=== PATIENT | male | born 1950 | race Caucasian/White ===

== ENCOUNTER → 2018-04-27 | Outpatient (CLI) | payer MEDICARE ==
--- NOTE | 2018-04-27 13:13 | PCVCIMAG ---
EXAM: BILATERAL LOWER EXTREMITY ARTERIAL DUPLEX INDICATION: Peripheral Arterial Disease. Leg pain. FINDINGS: Right Leg: Common femoral and profunda femoral arteries are patent. Superficial femoral artery is patent. Subtotal occlusion/high-grade stenosis mid/distal right popliteal artery. The peroneal artery is occluded. The anterior tibial artery is patent. Question of proximal posterior tibial artery stenosis. Left Leg: Satisfactory arterial waveforms throughout the common/profunda/superficial femoral, popliteal, anterior tibial, peroneal, and posterior tibial arteries. No flow limiting stenosis seen. IMPRESSION: Subtotal occlusion/high-grade stenosis mid/distal right popliteal artery. Occlusion of the right peroneal artery. No flow limiting stenosis seen in the left leg. LOC:[id number]
== END | disposition home or self-care (01) ==
LOC: PCVCIMAG 11:22
PROVIDERS: ATTEND Family Medicine
DX: I73.9 Peripheral vascular disease, unspecified (principal)
CPT/HCPCS: 93925

== ENCOUNTER → 2018-05-14 | Outpatient (CLI) | payer MEDICARE | END | disposition home or self-care (01) | LOC: PCVCCLINIC 12:00 | PROVIDERS: ATTEND Internal Medicine | DX: I25.10 Atherosclerotic heart disease of native coronary artery without angina pectoris (principal); I10 Essential (primary) hypertension; I73.9 Peripheral vascular disease, unspecified; R93.1 Abnormal findings on diagnostic imaging of heart and coronary circulation; F17.200 Nicotine dependence, unspecified, uncomplicated; Z72.89 Other problems related to lifestyle | CPT/HCPCS: 93005; G0463 ==

== ENCOUNTER → 2018-05-22 | Outpatient (CLI) | payer MEDICARE ==
[~2018-05-22] MED LIST: ASPIRIN 325 MG TABLET ONE; CLOPIDOGREL BISULFATE 75 MG TABLET ONE; DIAZEPAM 10 MG TABLET. ONE; EPTIFIBATIDE BOLUS 2,000 MCG/ML 10ML VIAL. IV ONE; HEPARIN for ARTERIAL LINE 1,500 ML ONE; HEPARIN for SUB-Q USE 5,000 UNIT/ML VIAL. SQ ONE; IODIXANOL 270 MG/ML 100 ML VIAL. ONE; IOHEXOL 350 MG/ML 100 ML VIAL. ONE; IOHEXOL 350 MG/ML 50 ML VIAL. ONE; IV NORMAL SALINE 1000ML BAG 1,000 ML ONE; LIDOCAINE 1%/EPI 1:100,000 20 ML VIAL. ONE; MIDAZOLAM HCL/PF 2 MG/2 ML VIAL. ONE; PROTAMINE 50 MG/5 ML VIAL. IV ONE; fentaNYL PF VIAL 100 MCG/2 ML VIAL ONE; hydrALAZINE 20 MG/ML VIAL. ONE
--- NOTE | 2018-05-22 22:54 | PCVCINTER ---
EXAM: 1. AORTOGRAM AND BILATERAL LOWER EXTREMITY RUNOFF ANGIOGRAM 2. BILATERAL RENAL ANGIOGRAPHY 3. RIGHT POPLITEAL ARTERY ATHERECTOMY AND STENT PLACEMENT. 4. SECONDARY THROMBECTOMY RIGHT POPLITEAL ARTERY. 5. DRUG COATED BALLOON ANGIOPLASTY RIGHT POPLITEAL ARTERY. INDICATION: Peripheral arterial disease. Coronary artery disease. Nonhealing ulcer right lower extremity. Hypertension. Renal atherosclerosis. No prior catheter based angiographic study is available. A full diagnostic angiogram study is performed today and the decision to intervene is based on this diagnostic study. PROCEDURE: Procedure and risks of angiography intervention is appropriate including limb loss stroke and were discussed with the patient's family and consent obtained. The patient's left groin was prepped in the normal sterile fashion. IV conscious sedation was used throughout procedure with appropriate monitoring from 10:30 AM through 12:00 PM. Ultrasound was used to interrogate the left groin and showed the left common femoral artery to be patent. A permanent spot film was obtained. Under ultrasound guidance access into the left common femoral artery was obtained and a 5 Sami sheath was placed. Through this a 5 Sami flush catheter was placed into the abdominal aorta at the level of the renal arteries and AP aortogram was performed. Catheter was positioned at the aortic bifurcation and both oblique views of the pelvis were obtained. Catheter was positioned into the left external iliac artery and left leg runoff angiography was performed. Catheter was exchanged for a visceral catheter was placed into the right renal arteries and right renal angiograms obtained. Catheter was placed into the the left renal arteries and left renal angiograms were obtained. Catheter was advanced to the level of the right external iliac artery and right leg runoff angiography was obtained. Patient was given 4000 units of heparin. A 6 Sami crossover sheath was placed via the left groin to the level of the right common femoral artery. Atherectomy of the right popliteal artery was performed with 2.0 mm SpectranetModeWalk laser atherectomy catheter in the standard fashion. Following atherectomy small areas of thrombus were observed and because of this secondary thrombectomy throughout the right popliteal artery was carried out with mechanical suction thrombectomy catheter in the standard fashion. Minimal debris was removed. Following this drug coated balloon angioplasty of the right popliteal artery was carried out with a 5 x 60 SpectranetModeWalk Gita [place] [employer] W[employer] TE[employer]NICIAN catheter. Stent placement across the areas of high-grade stenosis in the right popliteal artery was carried out with a 8 x 40 Smart control stent with subsequent dilatation to 6.0 mm. Catheters and wires removed. Sheath was removed and hemostasis obtained using the FISH device. No immediate complications. FINDINGS: Aortogram: There is one right and one left renal artery. Moderate plaque infrarenal abdominal aorta with moderate tortuosity. Pelvis: The right and left common and external iliac arteries show adequate patency. Both internal iliac arteries are patent. The right and left common femoral and profunda femoral arteries show adequate patency. Right renal artery: Mild plaque proximal vessel causes minimal stenosis. Left renal artery: Minimal plaque proximal vessel does not cause significant stenosis. Right leg: Superficial femoral artery shows good patency throughout. Short segment occlusion mid popliteal artery. Distal popliteal artery refills. The anterior tibial, peroneal, and posterior tibial arteries show adequate patency throughout. Left le% concentric stenosis proximal superficial femoral artery. Remainder of the superficial femoral artery shows good patency. Popliteal artery is patent. 80% stenosis origin anterior tibial artery. Anterior tibial artery otherwise shows satisfactory patency. The peroneal artery and posterior tibial arteries show satisfactory patency throughout. Right popliteal artery: Following procedure as above satisfactory patency throughout the popliteal artery has been restored. IMPRESSION: Short segment occlusion mid [place] right popliteal artery was treated as above with satisfactory patency restored. 80% stenosis proximal left superficial femoral artery. Patient will return next week for correction of this. LOC:OFFICE
--- NOTE | 2018-05-24 13:39 | PCVCINTER ---
APPROVED REPORT Study performed: 05/22/2018 12:10:07 Patient Details Patient Status: Out-Patient Room #: 2 The patient is a 68 year-old Male Event Personnel Mustapha Villaseñor MD, Eddie Barnett RT(R), Jenni Johnson RN, Teto Antonio RT(R)() Procedures Performed Left heart catheterization, selective left and right coronary angiography, supervision of conscious sedation Indication Elevated calcium score greater than 2000 with significant risk factors for coronary artery disease Risk Factors Arterial HypertensionDysplipidemia (Type: 0), Peripheral Vascular Disease, Last Creatanine 0.8Tobacco History (Current/Recent(w/in 1 year)) Procedure Narrative The right coronary system was accessed and visualized with a JR4 catheter. The left coronary system was accessed and visualized with a JL4 catheter. The left ventricle was accessed and visualized with a Angled Pigtail catheter. Closure device was deployed with a 6 Fr FISH. Hemostasis was obtained with manual pressure following sheath removal without any complications. The patient tolerated the procedure well and there were no complications associated with the procedure. There was no hematoma. Coronary Angiography The patient's coronary anatomy is right dominant. Diagnostic Cath Left MainNormal origin moderate to large caliber vessel bifurcates left anterior descending left circumflex. Some distal tapering consistent with a narrowing of under 50%. No flow limitations. There is evidence of calcifications at the distal portion of the left main LADSmall-caliber vessel which courses in the anterior interventricular sulcus having significant epicardial calcifications. In the proximal portion there appears to be at 25% luminal narrowing, flow-limiting. The LAD continues in the anterior interventricular sulcus giving rise to septal perforators and small diagonal branches with only luminal irregularities until the distal terminal portion with a vessel is under half a millimeter in diameter. At this point and is a 95 or greater percent stenosis. The vessel then bifurcates into small hair-like extensions terminating in the inferolateral Diagonal 1Moderate caliber vessel coursing along the anterolateral wall. High-grade disease it tapers rapidly and terminates small-caliber vessels in the midportion of the anterolateral wall of the left ventricle CircumflexMall caliber vessel which gives rise to an early marginal branch versus ramus. This is small to moderate caliber free of high-grade disease [id number] to moderate caliber vessel coursing on the lateral aspect of the ventricle terminating in the apical portion of the lateral aspect of the left ventricle has luminal irregularities noted. No obstructive flow-limiting lesions Right CoronaryNormal origin and caliber which has a proximal narrowing of approximately 30-40%. This vessel is calcified proximally and in its mid course. The artery then continues on any AV groove to the acute marginal gives rise to small caliber RV marginal branch. It. Sees with only luminal irregularities to the crux of the hardware posterior descending artery which is small to moderate in caliber he states. It is free of high-grade disease. The fact kayleen and terminates as a small to branch posterior lateral branch without high-grade lesions R PDASmall to moderate caliber vessel tortuous in its course towards the apex free of significant high-grade lesions noted Left Ventriculography Left Ventriculography was not performed. Hemodynamics The aortic pressure is 127/68 mmHg with a mean of 95 mmHg. The left ventricular pressure is 129/4 mmHg with a mean of 7 mmHg. Conclusion 1. Coronary disease mild to moderate without evidence of significant obstructive lesions 2. Normal hemodynamics 3. Extensive calcification of the aorta proper noted under fluoroscopy from the pelvis to the thoracic region Recommendations Cardiac Risk Reduction Program Medical Therapy
== END | disposition home or self-care (01) ==
LOC: PCVCINTER 09:21
PROVIDERS: ATTEND Internal Medicine
DX: I70.238 Atherosclerosis of native arteries of right leg with ulceration of other part of lower leg (principal); L97.818 Non-pressure chronic ulcer of other part of right lower leg with other specified severity; I70.292 Other atherosclerosis of native arteries of extremities, left leg; I25.10 Atherosclerotic heart disease of native coronary artery without angina pectoris; I70.1 Atherosclerosis of renal artery; I10 Essential (primary) hypertension; I70.0 Atherosclerosis of aorta; Z98.890 Other specified postprocedural states; Z98.1 Arthrodesis status; Z82.49 Family history of ischemic heart disease and other diseases of the circulatory system; F17.210 Nicotine dependence, cigarettes, uncomplicated; Z72.89 Other problems related to lifestyle; Z79.899 Other long term (current) drug therapy; Z79.82 Long term (current) use of aspirin; M81.0 Age-related osteoporosis without current pathological fracture; M15.0 Primary generalized (osteo)arthritis
CPT/HCPCS: 36252; 37186; 37227; 75716; 76937; 93458; 99152; 99153; C1725; C1751; C1757; C1760; C1769; C1876; C1885; C1887; C1894; C2623; J0690; J1327; J1644; J2250; J3010; J3490; J7030; Q9967; J0360

== ENCOUNTER → 2018-05-28 | Outpatient (CLI) | payer MEDICARE ==
[~2018-05-28] MED LIST changes: -ASPIRIN 325 MG TABLET ONE; -CLOPIDOGREL BISULFATE 75 MG TABLET ONE; -EPTIFIBATIDE BOLUS 2,000 MCG/ML 10ML VIAL. IV ONE; -HEPARIN for ARTERIAL LINE 1,500 ML ONE; -IOHEXOL 350 MG/ML 100 ML VIAL. ONE; -IOHEXOL 350 MG/ML 50 ML VIAL. ONE; -PROTAMINE 50 MG/5 ML VIAL. IV ONE
--- NOTE | 2018-05-28 14:57 | PCVCINTER ---
EXAM: 1. LEFT SUPERFICIAL FEMORAL ARTERY ATHERECTOMY AND DRUG COATED BALLOON ANGIOPLASTY. 2. SECONDARY THROMBECTOMY LEFT SUPERFICIAL FEMORAL ARTERY ARTERY. INDICATION: Peripheral arterial disease. Coronary artery disease. Leg pain. Hypertension. Renal atherosclerosis. No prior catheter based angiographic study is available. A full diagnostic angiogram study is performed today and the decision to intervene is based on this diagnostic study. PROCEDURE: Procedure and risks of angiography intervention is appropriate including limb loss stroke and were discussed with the patient's family and consent obtained. The patient's right groin was prepped in the normal sterile fashion. IV conscious sedation was used throughout procedure with appropriate monitoring from 1:00 PM through 2:00 PM. Ultrasound was used to interrogate the right groin and showed the right common femoral artery to be patent. A permanent spot film was obtained. Under ultrasound guidance access into the right common femoral artery was obtained and a 5 Ugandan sheath was placed. Through this a 6 [place]an crossover sheath was placed via the right groin to the level of the left common femoral artery. Atherectomy of the left proximal superficial femoral artery was performed with 2.0 mm SpectranetAltSchool laser atherectomy catheter in the standard fashion. Following atherectomy small areas of thrombus were observed and because of this secondary thrombectomy throughout the left superficial femoral artery was carried out with mechanical suction thrombectomy catheter in the standard fashion. Minimal debris was removed. Following this drug coated balloon angioplasty of the left superficial femoral artery was carried out with a 6 x 40 SpectranetAltSchool Gita [place] TEST DESKMAN catheter. Follow-up angiogram was performed. Catheters and wires removed. Sheath was removed and hemostasis obtained using the FISH device. No immediate complications. FINDINGS: Left superficial femoral artery: Eccentric plaque proximal vessel causing 80% stenosis was treated as above with satisfactory patency restored. IMPRESSION: 80% stenosis proximal left superficial femoral artery was treated as above with satisfactory patency restored. LOC:[id number]
== END | disposition home or self-care (01) ==
LOC: PCVCINTER 10:46
PROVIDERS: ATTEND Internal Medicine
DX: I70.292 Other atherosclerosis of native arteries of extremities, left leg (principal); I70.1 Atherosclerosis of renal artery; I25.10 Atherosclerotic heart disease of native coronary artery without angina pectoris; I10 Essential (primary) hypertension; Z98.1 Arthrodesis status; Z98.890 Other specified postprocedural states; Z72.89 Other problems related to lifestyle; F17.210 Nicotine dependence, cigarettes, uncomplicated; Z79.899 Other long term (current) drug therapy; Z79.82 Long term (current) use of aspirin; M15.0 Primary generalized (osteo)arthritis
CPT/HCPCS: 37186; 37225; 76937; 99152; 99153; C1713; C1725; C1751; C1757; C1769; C1885; C1894; C2623; J0690; J1644; J2250; J3010; J3490; J7030; Q9967; J0360

== ENCOUNTER → 2018-06-25 | Outpatient (CLI) | payer MEDICARE | END | disposition home or self-care (01) | LOC: PCVCCLINIC 11:10 | PROVIDERS: ATTEND Internal Medicine | DX: I25.10 Atherosclerotic heart disease of native coronary artery without angina pectoris (principal); I73.9 Peripheral vascular disease, unspecified; E78.5 Hyperlipidemia, unspecified; I10 Essential (primary) hypertension; Z79.82 Long term (current) use of aspirin; F17.200 Nicotine dependence, unspecified, uncomplicated | CPT/HCPCS: G0463 ==

== ENCOUNTER → 2018-08-09 | Outpatient (CLI) | payer MEDICARE | END | disposition home or self-care (01) | LOC: PCVCCLINIC 10:19 | PROVIDERS: ATTEND Internal Medicine | DX: I25.10 Atherosclerotic heart disease of native coronary artery without angina pectoris (principal); E78.5 Hyperlipidemia, unspecified | CPT/HCPCS: 36415; 80061 ==

== ENCOUNTER → 2018-10-04 | Outpatient (CLI) | payer MEDICARE ==
--- NOTE | 2018-10-04 08:46 | PCVCIMAG ---
EXAM: BILATERAL CAROTID DUPLEX INDICATION: Carotid Occlusive Disease. FINDINGS: Doppler Measurements (centimeters per second): RIGHT: Peak CCA-72, Peak ECA-109, Diastolic ICA-45, Peak ICA-124, ICA/CCA Ratio-1.4. LEFT: Peak CCA-93, Peak ECA-100, Diastolic ICA-28, Peak ICA-83, ICA/CCA Ratio-0.9. RIGHT CAROTID: The carotid bulb has moderate plaque. The proximal internal carotid artery shows 40% stenosis. The common carotid artery shows no significant stenosis. The external carotid artery shows no significant stenosis. LEFT CAROTID: The carotid bulb has mild plaque. The proximal internal carotid artery shows <40% stenosis. The common carotid artery shows no significant stenosis. The external carotid artery shows no significant stenosis. Antegrade flow in both vertebral arteries. IMPRESSION: 40% stenosis of the right internal carotid artery with moderate plaque. <40% stenosis of the left internal carotid artery with mild plaque. LOC:[place] [id number]
--- NOTE | 2018-10-04 09:30 | PCVCIMAG ---
EXAM: BILATERAL LOWER EXTREMITY ARTERIAL DUPLEX INDICATION: Peripheral Arterial Disease. Leg pain. FINDINGS: Right Leg: Common femoral and profunda femoral arteries are patent. Superficial femoral artery and popliteal artery are patent. Previous proximal artery stent maintaining good patency. The anterior tibial, peroneal, and posterior tibial arteries are patent. Left Leg: Common femoral and profunda femoral arteries are patent. Superficial femoral artery and popliteal arteries are patent. Previous left superficial femoral artery stent maintaining satisfactory patency. The anterior tibial, peroneal, and posterior tibial arteries are patent. IMPRESSION: No flow limiting stenosis in the right lower extremity. Previous right popliteal artery stent maintaining satisfactory patency. Previous left superficial femoral artery stent maintaining satisfactory patency. No flow limiting arterial stenosis in the left lower extremity. LOC:[id number]
== END | disposition home or self-care (01) ==
LOC: PCVCIMAG 07:59
PROVIDERS: ATTEND Nuclear Medicine Nuclear Cardiology
DX: I65.23 Occlusion and stenosis of bilateral carotid arteries (principal); I73.9 Peripheral vascular disease, unspecified; I25.10 Atherosclerotic heart disease of native coronary artery without angina pectoris; I77.9 Disorder of arteries and arterioles, unspecified; I10 Essential (primary) hypertension; E78.00 Pure hypercholesterolemia, unspecified; F17.200 Nicotine dependence, unspecified, uncomplicated
CPT/HCPCS: 93880; 93925; G0463

== ENCOUNTER → 2019-01-01 | Outpatient (CLI) | payer MEDICARE | END | disposition home or self-care (01) | LOC: PCVCCLINIC 12:52 | PROVIDERS: ATTEND Internal Medicine | DX: I25.10 Atherosclerotic heart disease of native coronary artery without angina pectoris (principal); E78.5 Hyperlipidemia, unspecified; I73.9 Peripheral vascular disease, unspecified | CPT/HCPCS: 93005; G0463 ==

== ENCOUNTER → 2019-04-11 | Outpatient (CLI) | payer MEDICARE ==
--- NOTE | 2019-04-11 11:07 | PCVCIMAG ---
EXAM: BILATERAL LOWER EXTREMITY ARTERIAL DUPLEX INDICATION: Peripheral Arterial Disease. Leg pain. FINDINGS: Right Leg: Satisfactory arterial waveforms throughout the common/profunda/superficial femoral, popliteal, anterior tibial, peroneal, and posterior tibial arteries. No flow limiting stenosis seen. Previous right popliteal artery stent maintaining good patency. Left Leg: Satisfactory arterial waveforms throughout the common/profunda/superficial femoral, popliteal, anterior tibial, peroneal, and posterior tibial arteries. No flow limiting stenosis seen. IMPRESSION: No flow limiting stenosis in the right lower extremity. Previous right popliteal artery stent is maintaining good patency. No flow limiting stenosis in the left lower extremity. Previous site of intervention proximal left superficial femoral artery maintaining satisfactory patency. Incidental note is made of a 0.8 x 1.4 x 4.5 cm right popliteal cyst. LOC:[id number]
== END | disposition home or self-care (01) ==
LOC: PCVCIMAG 10:03
PROVIDERS: ATTEND Nuclear Medicine Nuclear Cardiology
DX: I73.9 Peripheral vascular disease, unspecified (principal); I25.10 Atherosclerotic heart disease of native coronary artery without angina pectoris; I10 Essential (primary) hypertension; E78.00 Pure hypercholesterolemia, unspecified; M71.21 Synovial cyst of popliteal space [Baker], right knee; Z82.49 Family history of ischemic heart disease and other diseases of the circulatory system; Z87.891 Personal history of nicotine dependence
CPT/HCPCS: 93925; G0463